=== PATIENT | male | born 1990 | race Caucasian/White ===

== ENCOUNTER 2020-06-19 17:53 | Emergency (ER) | payer BC, SELFPAY ==
[2020-06-19 18:03] VITALS: BP 127/81; PULSE 65; RESP 18; TEMP 36.3; O2SAT 100
[2020-06-19] MEDS: Lidocaine/Epinephri/Tetracaine Topical Gel 3 ML TP (18:27)
--- NOTE | 2020-06-19 19:04 | ED.GENADUL_ITS ---
Discharge Plan Disposition Patient Disposition: HOME Condition: Good Discharge Details Chief Complaint: Laceration Clinical Impression: Laceration ED Provider: Ml Roth Home Meds and New Rx's Prescriptions: No Action No Known Home Meds RF: 0 Discharge Instructions Instructions: Laceration (ED) Additional Instructions: Keep wound clean and dry wash daily with warm soapy water rinse pat dry gently apply thin layer of antibiotic ointment dressing to protect Return in 7 to 10 days for suture removal Report any signs of infection including fever drainage redness immediately Your tetanus has been updated on this visit Referrals: Provider,Temporary [[facility] STAFF PHYSICIAN] - (Please return to the emergency department in 7 to 10 days for suture removal) Medical Decision Making 1/2 cm to right inner forearm through epidermis only. LET applied, further anesthetized with lido1% and epi with good effect. wound cleansed with NS, no debris in wound bed. closed using 3 4-0 suture ethilon, wound well approximated, cleansed by nursing, bacitracin and dry dressing applied HPI General Mode of arrival: ambulatory . Date/Time Provider Initiated Documentation: 06/19/20 17:57 . Limitations to Documentation: no limitations . Information obtained by: patient . HPI Narrative: Patient with no significant medical history who presents to the emergency department after sustaining a laceration to his mid anterior forearm. He is unsure of his last tetanus. There is no bleeding on arrival. There was no other injury Related Data Home Medications Medication Instructions Recorded Confirmed Unknown [No Known Home Meds] 06/19/20 06/19/20 Allergies Allergy/AdvReac Type Severity Reaction Status Date / Time No Known Allergies Allergy Unverified 06/19/20 18:05 General Stated Complaint: Laceration LAKSHMI: 4 Review of Systems Constitutional Constitutional: Denies fever(s) Respiratory Respiratory: Denies cough Integumentary/Breasts Skin/Breast: Denies rash and Reports other (1-1/2 cm laceration) PFSH Social History Smoking/Tobacco Use Status: Never Alcohol Intake: current Alcohol Intake frequency: a few times a month Drug use: Never Substance use type: does not use Do you feel safe at home: Yes Do you feel safe in your relationship?: Yes Exam Const General: cooperative, healthy appearing and comfortable Nutritional Appearance: average body habitus Orientation: alert, awake and oriented x3 Cardio Rate: regular rate Rhythm: regular rhythm Skin Trauma: laceration (Right anterior) right does not involve subcutaneous tissue Extrem General: normal to inspection and full ROM Course Vital Signs Vital signs: Vital Signs Temperature 36.3 C L 06/19/20 18:03 Pulse 65 06/19/20 18:03 Respiratory Rate 18 06/19/20 18:03 Blood Pressure 127/81 06/19/20 18:03 Pulse Oximetry 100 06/19/20 18:03 Temperature 36.3 C L 06/19/20 18:03 Temperature Source Skin 06/19/20 18:03 Pulse 65 06/19/20 18:03 Respiratory Rate 18 06/19/20 18:03 Respiratory Effort Non-Labored 06/19/20 18:05 Blood Pressure 127/81 06/19/20 18:03 Blood Pressure Position Sitting 06/19/20 18:03 Pulse Oximetry 100 06/19/20 18:03 Oxygen Delivery Method Room Air 06/19/20 18:03 Oxygen Flow Rate 0 06/19/20 18:03 Pain Level 1 06/19/20 18:03
== END 2020-06-19 19:30 | disposition home or self-care (01) ==
LOC: ER 19:38
PROVIDERS: Emergency Provider Nurse Practitioner Acute Care; PCP Nurse Practitioner Family
DX: S51.811A Laceration without foreign body of right forearm, initial encounter (principal); W26.8XXA Contact with other sharp object(s), not elsewhere classified, initial encounter
CPT/HCPCS: 12001; 90471

== ENCOUNTER 2020-07-22 21:57 | Outpatient (REF) | payer BC, SELFPAY ==
[2020-07-27 15:29] LABS: Patient Race White; SARS-CoV-2 RNA Undetected (Undetected)
== END 2020-07-22 22:17 ==
LOC: NCHCN 21:57
PROVIDERS: PCP Nurse Practitioner Family; Visit Provider Nurse Practitioner Community Health
DX: R05 Cough (principal)
CPT/HCPCS: U0003

== ENCOUNTER 2020-10-10 17:16 | Emergency (ER) | payer BC, SELFPAY ==
--- NOTE | 2020-10-10 17:21 | ED.GENADUL_ITS ---
Discharge Plan Disposition Patient Disposition: HOME Condition: Fair Discharge Details Clinical Impression: Fracture of transverse process of lumbar vertebra, Fracture of rib, Pneumothorax Primary Care Provider: Susan Quiroz ED Provider: Nydia Zapata Home Meds and New Rx's Prescriptions: No Action No Known Home Meds RF: 0 Discharge Instructions Instructions: Rib Fracture (ED), Transverse Process Fracture (ED) Additional Instructions: Encourage water intake. Please continue to alternate with Tylenol and/or ibuprofen as needed for discomfort. Your next dose of Tylenol may be taken at 1030. Your next dose of ibuprofen may be given at 1 AM. Please encourage ge ntle stretching and walking. Please follow-up with general surgery tomorrow as discussed. Tomorrow afternoon, they will repeat your chest x-ray to ensure that your pneumothorax has resolved and will follow up with you afterwards regarding the results. I would also like you to follow-up with orthopedics regarding your back fractures. Please call tomorrow to schedule follow-up appointment. If you develop increased pain, difficulty breathing, shortness of breath, fevers, weakness or other new/worsening symptoms please seek care urgently once again. Stand Alone Forms: Work Release Referrals: Susan Quiroz [Primary Care Provider] - Kody Green MD [ [facility] STAFF PHYSICIAN] - Letitia Wild DO [OSTEOPATHIC DOCTOR] - Discharge Data Discharge Date/Time-TO BE ENTERED AT DEPARTURE: 10/10/20 20:25 Medical Decision Making Patient is a pleasant 30 year old male presenting today with c/c of left sided flank pain after fall while cross country skiing. He states that he was going down a hill When he crashed and landed on a log. Since that time is been having severe pain in the left side of his back. Was able to get up and ambulate home. Has any numbness or tingling. No incontinence. States that he has some discomfort with deep inspiration but no shortness of breath or difficulty breathing. Denies any nausea or vomiting. He did not strike his head. No loss of consciousness. Denies other injury extremity incident. On exam, appears anxious but otherwise nontoxic. Noted to be hypertensive blood pressure 154/91 otherwise vital signs within normal limits. Trauma exam is pe rtinent for left-sided back pain. No midline tenderness, no paraspinal tenderness. He has good rotation of his back but has pain elicited with flexion and extension. Pelvis is stable. He does have some CVA tenderness. Lungs are clear and no pain with palpation about the rib. FAST exam was performed by myself without any abnormality noted. Plan to move forward for CT imaging. I am concerned for potential fracture would also like to evaluate her left kidney further. Patient initially declined any analgesics but is in agreement with acetaminophen. FINDINGS: Lungs: Small left basilar pneumothorax. Liver: Normal. No laceration. Gallbladder and bile ducts: Normal. No calcified stones. No ductal dilation. Pancreas: Normal. No ductal dilation. Spleen: Normal. No laceration. Adrenal glands: Normal. No mass. Kidneys and ureters: Normal. No hydronephrosis. Stomach and bowel: Unremarkable. No obstruction. No mucosal thickening. Appendix: Normal appendix. Intraperitoneal space: Unremarkable. No free air. No significant fluid collection. Vasculature: Unremarkable. No abdominal aortic aneurysm. Lymph nodes: Unremarkable. No enlarged lymph nodes. Urinary bladder: Unremarkable as visualized. Reproductive: Unremarkable as visualized. Bones/joints: Nondisplaced fracture of the posterolateral left 11th rib and fractures of the left transverse processes of L2 and L3. Soft tissues: Unremarkable. IMPRESSION: 1. Small left basilar pneumothorax. 2. Fractures of the left 11th rib and left transverse processes of L2 and L3. Contacted by radiologist who advised plain film chest x-ray for further evaluation. She did place the patient on nasal cannula in the interim. Patient continues to deny any shortness of breath. Prior to placing him on the tube, his O2 was 97% on room air. Pain is much improved, moving more comfortably. We will augment the Tylenol with Toradol to allow for increased mobility. FINDINGS: There is a small left apical pneumothorax estimated at less than 5%. No pleural effusion. No airspace consolidation. Unremarkable cardiomediastinal silhouette. IMPRESSION: Small left apical pneumothorax. Discussed pneumothorax with Dr. Wild. She reviewed the images. She advised that he can be d/c to home but needs a repeat cxr tomorrow. I discussed disposition at length with the patient. We discussed the pathology noted here today. Patient would prefer discharge home. He is a teacher. I advised that secondary discomfort he should hold off working tomorrow. Encourage gentle stretching and frequent ambulation. Advised that he avoid any strenuous activity. Incentive spirometer was sent home with the patient and instruction was given by nursing staff. Patient will follow up for chest x-ray tomorrow followed by evaluation by general surgery. Labs performed orthopedics regarding his back fractures. Patient is moving about the room with Tylenol, Lidoderm patch and Toradol. He declined any further analgesics. Strict return precautions were discussed, in particular signs of increased pneumothorax. All the patient's questions and concerns were addressed and he is in agreement with this plan. HPI General Mode of arrival: ambulatory . Date/Time Provider Initiated Documentation: 10/10/20 17:21 . Limitations to Documentation: no limitations . Information obtained by: patient and RN notes reviewed . History of Present Illness 30 year old M presents to the emergency department with the chief complaint of left flank pain, described as moderate, with intensity rated at 6. Quality is described as aching, and is localized to the back. Patient reports no radiation. Patient started experiencing this minute(s) and it has been constant. Immobilization improves symptom(s), Movement worsens symptoms . Patient notes no other symptoms.. Patient did receive the following treatments prior to arrival, none Related Data Home Medications Medication Instructions Recorded Confirmed Unknown [No Known Home Meds] 06/19/20 10/10/20 Allergies Allergy/AdvReac Type Severity Reaction Status Date / Time No Known Allergies Allergy Unverified 10/10/20 17:37 General LAKSHMI: 4 Review of Systems Constitutional Constitutional: Reports as per HPI, Denies chills, Denies fatigue, Denies fever(s), Denies headache(s) and Denies weakness Eyes Eyes: Reports as per HPI, Denies blurry vision, Denies change in vision and D enies loss of vision ENT Ears, Nose, Mouth, and Throat: Denies abnormal hearing and Denies headache(s) Cardiovascular Cardiovascular: Reports as per HPI, Denies chest pain and Denies dyspnea Respiratory Respiratory: Reports as per HPI, Denies cough, Denies pain on inspiration, Denies pain with cough and Denies dyspnea Gastrointestinal Gastrointestinal: Reports as per HPI, Denies abdominal pain, Denies nausea and Denies vomiting Genitourinary Genitourinary: Reports as per HPI and Denies urinary incontinence Musculoskeletal Musculoskeletal: Reports as per HPI Integumentary/Breasts Skin/Breast: Reports as per HPI and Denies rash Neurologic Neurologic: Reports as per HPI, Denies abnormal hearing, Denies abnormal movements, Denies abnormal speech, Denies headache(s), Denies lack of coordina tion, Denies localized weakness, Denies loss of vision, Denies seizure-like activity, Denies paresthesias and Denies weakness Endocrine Endocrine: Denies fatigue [facility] Social History Smoking/Tobacco Use Status: Never Smoking risk assessment performed?: Yes Alcohol Intake: current Alcohol Intake frequency: a few times a month Drug use: Never Substance use type: does not use Do you feel safe at home: Yes Do you feel safe in your relationship?: Yes Exam Const General: cooperative, healthy appearing, comfortable, no acute distress, well d eveloped and well groomed Nutritional Appearance: average body habitus and well nourished Orientation: alert, awake and oriented x3 HENMT Head: normal to inspection, normocephalic and atraumatic Ears: hearing grossly normal bilaterally General nose exam: external nose normal Eyes General: appearance normal, both eyes and all related structures Neck Neck: normal visual inspection, full ROM, no lymphadenopathy, no meningeal signs, trachea midline and supple Chest Chest: normal inspection of the chest, normal palpation of entire chest wall, no crepitus and no localized rib tenderness Resp Effort & Inspection: normal respiratory effort, able to speak in complete sentences and no respiratory distress Auscultation: clear to auscultation bilaterally, no rales, no rhonchi and no wheezes Cardio Rate: regular rate Rhythm: regular rhythm Heart Sounds: S1 normal and S2 normal GI Inspection: normal to inspection, no abdominal wall ecchymosis, no edema and non-distended Palpation: soft, no hepatosplenomegaly, not firm, no guarding, no pulsatile masses, not rigid and nontender Auscultation: normal bowel sounds Back/Spine/Pelvis Back: CVA tenderness (left) Cervical Spine: normal cervical lordosis and cervical ROM normal Thoracic/Lumbar Spine: thoracic and lumbar spine normal to inspection, thoraco- lumbar ROM limited (pain with extension and flexion. Rotation intact), No thoraco-lumbar spasm and No thoracic spinal tenderness Pelvis: no pain with anterior-posterior compression and no pain with lateral compression Sacroiliac joints: bilaterally nontender Back/spine/pelvis image: 1. area of discomfort Skin General skin exam: no rashes or lesions noted Lesions: no lesions Rashes: no rashes Trauma: no lacerations or abrasions Wounds: no wounds Neuro General: patient alert, patient awake, patient oriented x3, gait normal, tone normal and moves all extremities Cranial Nerves: CN's II-XI intact bilaterally Cognition: normal cognition Speech: speech normal Gait: normal gait Motor: muscle tone normal throughout and strength 5/5 throughout Sensory Exam: no sensory deficits noted (no saddle paresthesias) Extrem General: normal to inspection, full ROM, capillary refill normal, no pedal edema and no calf tenderness Psych Appearance: grossly normal and well kempt Mental Status: mental status grossly normal Speech and Movement: speech and movement normal
[2020-10-10 17:23] VITALS: BP 154/91; PULSE 81; RESP 16; TEMP 36.8; O2SAT 98
[2020-10-10 17:28] LABS: Bilirubin Negative (Negative); Blood Negative (Negative); Clarity Clear (Clear); Glucose Negative (Negative); Ketones Negative (Negative); Leukocyte Esterase Negative (Negative); Nitrite Negative (Negative); Specific Gravity >= 1.030 (1.005-1.025); Urobilinogen 0.2 EU/dL (Up TO 0.2); pH 5.5 (5-8)
--- NOTE | 2020-10-10 17:30 | DI.CT_ITS ---
EXAM: CT ABDOMEN PELVIS W CLINICAL HISTORY: left flankpain after fall on log TECHNIQUE: Imaging Protocol: Axial computed tomography images with coronal and sagittal reformatted images were created and reviewed CONTRAST MATERIAL: Intravenous: Omnipaque 350 Contrast volume:100 mL Oral: No COMPARISON: No exams were available for comparison FINDINGS: ABDOMEN: Lung Bases: There does appear to be a tiny left basilar pneumothorax. Liver: Normal density. No measurable mass. Portal, Superior Mesenteric, and Splenic Veins: Unremarkable. Gallbladder and Biliary Tract: No radiodense calculus or dilation. The gallbladder is contracted. Pancreas: Normal density, no abnormal calcifications or inflammatory process. Spleen: Normal. Adrenals: No masses seen. Kidneys: Normal size, contour and axis. No radiodense stones or obstructive uropathy. No masses seen. Abdominal Aorta: Abdominal portion non-dilated. Bowel: No obstruction or bowel wall thickening. Appendix is unremarkable. Peritoneal Cavity: No ascites, collection or mesenteric inflammatory response. No free air. Lymph Nodes: Within normal limits. Bones: There is a mildly displaced fracture of the left transverse process of L2. There is a nondisp laced fracture of the left transverse process of L3. There is a nondisplaced fracture of the lateral aspect of the left 11th rib. Soft Tissues: Unremarkable. PELVIS: Bladder: Symmetric distention, no gross wall thickening. Reproductive Organs: Unremarkable as visualized. Lymph Nodes: Within normal limits. Bones: Please see above. IMPRESSION: 1. Small left basilar pneumothorax. 2. Fractures involving the posterolateral aspect of the left 11th rib and the left transverse process es of L2 and L3. RADIATION DOSE DELIVERED: 985.86mGy.cm Total DLP DATA REPOSITORY: All CT scans at this facility are submitted to the National Radiology Data Registry (NRDR) Dose Index Registry (DIR) with the [employer] (ACR). RADIATION OPTIMIZATION: All CT scans at this facility use at least one of these dose optimization te chniques: automated exposure control; mA and/or kV adjustment per patient size (includes targeted exa ms where dose is matched to clinical indication); or iterative reconstruction.
[2020-10-10 17:50] LABS: Abs Immature Grans 0.04 10^3/uL (0.0-0.06); Absolute Basophil Count 0.04 10^3/uL (0.0-0.2); Absolute Lymphocyte Count 1.43 10^3/uL (1.2-3.4); Absolute Neutrophil Count 7.42 10^3/uL (1.2-6.7); Basophils % 0.4; HCT 47.9 % (40.0-50.0); HGB 16.9 g/dL (13.5-17.5); Immature Grans % 0.4; Lymphocytes % 14.5; MCH 28.5 pg (27.0-33.0); MCHC 35.3 % (32.0-36.0); MCV 80.6 fL (80-95); MPV 9.4 fL (8.0-11.0); Monocytes % 8.1; Neutrophils % 75.6; Nucleated RBC 0 %; Platelet Count 242 10^3/uL (130-400); RBC 5.94 10^6/uL (4.36-5.78); RDW 12.2 % (11.8-14.1); RDW-SD 36.1 fL; WBC 9.83 10^3/uL (4.4-10.8)
[2020-10-10] MEDS: Normal Saline Flush 10 ML SYR IVP (17:50)
[2020-10-10] MEDS: Acetaminophen 500 MG TAB 1000 MG PO (17:57)
[2020-10-10] MEDS: Lactated Ringers 1,000 ML 1000 ML IV (17:57)
[2020-10-10] MEDS: Omnipaque 350 MG/ML 100 ML BTL IJ (18:33)
[2020-10-10] MEDS: Normal Saline - Diluent 50 ML VIAL IV (18:33)
[2020-10-10 18:37] VITALS: BP 149/76; PULSE 79; RESP 23; O2SAT 99
[2020-10-10 18:38] VITALS: PULSE 79; RESP 18; O2SAT 99
[2020-10-10 18:40] VITALS: PULSE 76; RESP 18; O2SAT 99
[2020-10-10 18:46] LABS: ALT 29 U/L (16-63); AST 16 U/L (15-37); Albumin 4.6 g/dL (3.4-5.0); Alkaline Phosphatase 58 U/L (46-116); Anion Gap 7.8 mmol/L (3-11); BUN 21 mg/dL (7-18); Bilirubin, Total 0.6 mg/dL (0.2-1.0); CO2 29.2 mmol/L (21.0-32.0); CREATININE 1.05 mg/dL (0.70-1.30); Calcium 8.9 mg/dL (8.5-10.1); Chloride 103 mmol/L (98-107); Glucose 103 mg/dL (74-106); Potassium 3.8 mmol/L (3.5-5.1); Sodium 140 mmol/L (136-145); Total Protein 7.7 g/dL (6.4-8.2)
--- NOTE | 2020-10-10 18:53 | DI.VRAD_ITS ---
Addendum created by Steven Juarez MD on 10/10/2020 7:08:01 PM EST: This report contains findings that may be critical to patient care. The findings were verbally communicated via telephone conference with JUAN NATH at 7:07 PM EST on 10/10/2020. The findings were acknowledged and understood. Initial report created on 10/10/2020 6:53:46 PM EST: PROCEDURE INFORMATION: Exam: CT Abdomen And Pelvis With Contrast Exam date and time: 10/10/2020 6:23 PM Age: 30 years old Clinical indication: Abdominal pain; Patient HX: Left flank pain after fall on log TECHNIQUE: Imaging protocol: Computed tomography of the abdomen and pelvis with intravenous contrast. COMPARISON: No relevant prior studies available. FINDINGS: Lungs: Small left basilar pneumothorax. Liver: Normal. No laceration. Gallbladder and bile ducts: Normal. No calcified stones. No ductal dilation. Pancreas: Normal. No ductal dilation. Spleen: Normal. No laceration. Adrenal glands: Normal. No mass. Kidneys and ureters: Normal. No hydronephrosis. Stomach and bowel: Unremarkable. No obstruction. No mucosal thickening. Appendix: Normal appendix. Intraperitoneal space: Unremarkable. No free air. No significant fluid collection. Vasculature: Unremarkable. No abdominal aortic aneurysm. Lymph nodes: Unremarkable. No enlarged lymph nodes. Urinary bladder: Unremarkable as visualized. Reproductive: Unremarkable as visualized. Bones/joints: Nondisplaced fracture of the posterolateral left 11th rib and fractures of the left transverse processes of L2 and L3. Soft tissues: Unremarkable. IMPRESSION: 1. Small left basilar pneumothorax. 2. Fractures of the left 11th rib and left transverse processes of L2 and L3. Dictated and Authenticated by: Steven Juarez MD. Ordering:KEEGAN Stafford MD
--- NOTE | 2020-10-10 19:00 | DI.RAD_ITS ---
EXAM: XR CHEST 2V PA LATERAL CLINICAL HISTORY: concern for pneumothorax TECHNIQUE: 2D digital imaging was performed. COMPARISON: No exams were available for comparison FINDINGS: MEDIASTINUM: Normal. HEART: Normal. PULMONARY VASCULATURE: Normal. LUNGS: Clear. PLEURAL SPACE: There is a small left apical pneumothorax. It is estimated at less than 5 percent. N o pleural effusion. BONE:Within normal limits for the patient's age. OTHER FINDINGS:Normal. IMPRESSION: Small left apical pneumothorax. DATA REPOSITORY: RADIATION DOSE DELIVERED:
[2020-10-10] MEDS: Ketorolac 30 MG/ML VIAL IVP (19:13)
[2020-10-10] MEDS: Lidocaine 5% Patch 1 PATCH TP (19:14)
--- NOTE | 2020-10-10 19:52 | DI.VRAD_ITS ---
PROCEDURE INFORMATION: Exam: XR Chest, 2 Views Exam date and time: 10/10/2020 7:28 PM Age: 30 years old Clinical indication: Left-sided chest pain; Patient HX: Concern for pneumothorax TECHNIQUE: Imaging protocol: XR of the chest Views: 2 views. COMPARISON: No relevant prior studies available. FINDINGS: There is a small left apical pneumothorax estimated at less than 5%. No pleural effusion. No airspace consolidation. Unremarkable cardiomediastinal silhouette. IMPRESSION: Small left apical pneumothorax. Dictated and Authenticated by: Steven Juarez MD. Ordering:KEEGAN Stafford MD
--- NOTE | 2020-10-10 20:11 | NUR.NOTE ---
referal sent to cm ton make sure appointments to ortho and general surgery after xrayNursing Note:
[2020-10-10 20:24] VITALS: BP 115/76; PULSE 90; RESP 20; TEMP 36.8; O2SAT 97
--- NOTE | 2020-10-11 10:06 | CMPROGNOTE_ITS ---
- If Service Date Differs Date of service: 10/11/20 Time of Service: 10:06 Care Management Progress Note Timbo is seen in the ED on 10/10/20 for fracture of transverse process of lumbar vertebra, rib fracture, and pneumothorax. At the request of ED provider, CM coordinates referrals to [facility] Orthoped[facility] and to [facility] General Surgery to assist Timbo in obtaining follow up appointments. He has [employer] for insurance.
== END 2020-10-10 20:25 | disposition home or self-care (01) ==
PROVIDERS: Emergency Provider Physician Assistant; PCP Nurse Practitioner Family
DX: S32.028A Other fracture of second lumbar vertebra, initial encounter for closed fracture (principal); S32.038A Other fracture of third lumbar vertebra, initial encounter for closed fracture; S22.32XA Fracture of one rib, left side, initial encounter for closed fracture; S27.0XXA Traumatic pneumothorax, initial encounter; V00.321A Fall from snow-skis, initial encounter; W22.8XXA Striking against or struck by other objects, initial encounter; Y93.24 Activity, cross country skiing
CPT/HCPCS: 36415; 80053; 96361; 96374; 99285; 71046; 74177; 81003; 85025; J1885; J3490

== ENCOUNTER 2020-10-11 05:53 | Outpatient (CLI) | payer BC, SELFPAY ==
--- NOTE | 2020-10-11 12:00 | DI.RAD_ITS ---
EXAM: XR CHEST 2V PA LATERAL CLINICAL HISTORY: fall/trauama S32.009A, S27.2XXA TRAUMATIC HEMOPNEUMOTHORAX TECHNIQUE: 2D digital imaging was performed. COMPARISON: CR,XR XR CHEST 2V PA LATERAL from 10/10/2020 FINDINGS: MEDIASTINUM: Normal. HEART: Normal. PULMONARY VASCULATURE: Normal. LUNGS: Clear. PLEURAL SPACE: There is again seen a left pneumothorax. It is shown slight increase in size compared to the prior examination. BONE:Within normal limits for the patient's age. OTHER FINDINGS:Normal. IMPRESSION: Left pneumothorax which has shown very slight increase in size compared to 10/10/2020. DATA REPOSITORY: RADIATION DOSE DELIVERED:
== END 2020-10-11 06:13 ==
PROVIDERS: PCP Nurse Practitioner Family; Visit Provider Surgery
DX: S27.0XXA Traumatic pneumothorax, initial encounter (principal)
CPT/HCPCS: 71046